=== PATIENT | female | born 1990 ===

== ENCOUNTER 2022-05-31 06:16 | Emergency (ER) | payer SELFPAY ==
[2022-05-31 06:59] LABS: Bilirubin Negative (Negative); Blood, Urine Negative (Negative); Clarity Turbid (Clear); Glucose, Urine (Dipstick) Normal (Negative); Ketone, Urine Negative (Negative); Leukocyte Negative Leu/uL (Negative); Nitrite Negative (Negative); Protein, Urine (Dipstick) Negative (Neg-Trace); Specific Gravity, Urine 1.021 (1.002-1.036); Urobilinogen Normal mg/dL (Less than 2); pH, Urine 5.5 (5.0-9.0)
[2022-05-31 07:00] LABS: Pregnancy Test - Urine (BHCG) Negative (Negative); Pregu Control Background? CLEAR/WHITE (CLR/WHITE); Pregu Control Bar Appear? YES (CONTROL BAR); Specific Gravity 1.021 (1.002-1.036)
== END 2022-05-31 07:31 | disposition home or self-care (01) ==
LOC: ERS 06:16
DX: N92.6 Irregular menstruation, unspecified (principal)
CPT/HCPCS: 81003; 81025; 99284